=== PATIENT | male | born 1955 | race Caucasian/White ===

== ENCOUNTER 2021-05-14 02:32 | Emergency (ER) | payer OTHER ==
[2021-05-14 02:44] VITALS: BP 130/76; PULSE 76; TEMP 98.5; BMI 23.6
[2021-05-14] MEDS ORDERED: ONDANSETRON *ODT* 4 MG TABLET SL ONE (02:50)
[2021-05-14] MEDS ORDERED: ONDANSETRON *ODT* 4 MG TABLET ONE (03:12)
== END 2021-05-14 03:36 | disposition home or self-care (01) ==
LOC: FER 02:32
DX: R42 Dizziness and giddiness (principal)
CPT/HCPCS: 99283-25; Q0162